=== PATIENT | female | born 1955 | race Caucasian/White ===

== ENCOUNTER → 2021-08-10 | Outpatient (CLI) | payer OTHER ==
--- NOTE | 2021-08-10 16:48 | RAD ---
EXAM: AP pelvis, AP and lateral views of both hips DATE: 08/10/2021 11:25 AM INDICATION: Reason: BILATERAL HIP PAIN- QUEST. HAIRLINE FRACTURE LEFT HIP / Spl. Instructions: FALL I N / History: . COMPARISON: No Prior FINDINGS: Moderate right hip joint degenerative changes with joint space narrowing superiorly and medially with out acute fracture or dislocation. Left hip joint space is preserved. Asymmetric left hip joint space irregularity relative to the right. Lower lumbar spine degenerative changes. Body decreased mild bon e mineral density. IMPRESSION: 1. No acute fracture within the constraints of osteopenia. There is persistent clinical concern, MRI is recommended. 2. Right hip joint osteoarthritis. Electronically signed by: Nhan Ojeda MD (08/10/2021 4:46 PM) [id number]
== END ==
LOC: RAD 10:23
PROVIDERS: ATTEND Physician Assistant
DX: M16.11 Unilateral primary osteoarthritis, right hip (principal); M47.816 Spondylosis without myelopathy or radiculopathy, lumbar region
CPT/HCPCS: 73521